=== PATIENT | male | born 1965 | race Caucasian/White ===

== ENCOUNTER 2023-01-13 07:43 | Outpatient (CLI) | payer OTHER ==
[2023-01-13] MEDS ORDERED: Iopamidol 300 61% 100 ML VIAL FS ONE (09:21)
== END 2023-01-13 07:44 | disposition home or self-care (01) ==
LOC: CSHCT 07:43
DX: J32.9 Chronic sinusitis, unspecified (principal)

== ENCOUNTER 2023-08-11 07:35 | Outpatient (CLI) | payer OTHER | END 2023-08-11 07:36 | disposition home or self-care (01) | LOC: CSHCT 07:35 | DX: R09.02 Hypoxemia (principal); I31.8 Other specified diseases of pericardium | CPT/HCPCS: 71250 ==